=== PATIENT | female | born 1950 | race Caucasian/White ===

== ENCOUNTER 2017-05-28 07:56 | Day surgery (SDC) | payer OTHER ==
[~2017-05-28] VITALS: Ht 162.6 cm; Wt 133.1 kg
[2017-05-28] MEDS ORDERED: MONT10TA21 PO (08:28)
[2017-05-28] MEDS ORDERED: RANI150T5 PO (08:28)
[2017-05-28] MEDS ORDERED: GEMF600T60 PO (08:28)
[2017-05-28] MEDS ORDERED: ALBU18HF INHALATION (08:28)
[2017-05-28] MEDS ORDERED: LISI-313 PO (08:28)
[2017-05-28] MEDS ORDERED: ASPI-664 PO (08:28)
[2017-05-28] MEDS ORDERED: NAPR275T83 PO (08:28)
[2017-05-28] MEDS ORDERED: METF500T4 PO (08:28)
[2017-05-28] MEDS ORDERED: [UNRECOGNIZED DRUG - OTHER] PO (08:28)
[2017-05-28] MEDS ORDERED: PANT40TA4 PO (08:28)
[2017-05-28] MEDS ORDERED: LORA10TA3 PO (08:28)
[2017-05-28 08:40] VITALS: Ht 162.6 cm; Wt 133.1 kg
[2017-05-28] MEDS ORDERED: LIDOCAINE 2% (SDV) 5 ML INJ ONE (09:15)
[2017-05-28] MEDS ORDERED: PROPOFOL 60 ML ONE (09:15)
[2017-05-28 09:16] VITALS: BP 106/59; PULSE 60; RESP 22
[2017-05-28] MEDS ORDERED: ALBUTEROL HFA 8 GM INHALER INH SCH (09:30)
--- NOTE | 2017-05-28 10:10 | OPPN ---
Date/Time of Note Date/Time of Note DATE: 05/28/17 TIME: 10:03 Proc Note GI Procedure date: May 28, 2017 Pre-procedure Diagnosis Study of occult GI bleeding Post-procedure Diagnosis Erosive esophagitis #2 hiatal hernia #3 antral polyp #4 antral gastritis Operation Performed EGD Surgeon: ИВАН XIONG MD Anesthesiologist: DICK WALDEN DO Estimated blood loss: none Transfusion Required: no Specimens gastric and esophageal biopsy Grafts/Implants: none Complications: no Complications none Pt Condition post procedure: stable Indications h/o of occult GI bleeding Operative\Procedure Findings EGD Informed written consent is obtained patient was ostial in the left lateral side. His anesthesia was given by anesthesiologist.when the Become somnolent Olympus video upper endoscope was introduced into the oropharynx then into the esophagus Distal esophagus showed evidence of linear erosions of a moderate degree hiatal hernia was noted Stomach was examined which showed evidence of erythema in the antrum small polyp was noted in the antrum biopsies were done scope was advanced into the duodenum. duodenum appeared normal. at this time biopsy of the antral polyp was done.. bx of the antrum the lesser curvature in the fundus was done to rule out H. pylori infection Procedure Description scope was withdrawn and the procedure was terminated Recommend omeprazole 40 g a day in the morning before for breakfast wait for the pathology report cc ИВАН Reynolds MD May 28, 2017 10:10
--- NOTE | 2017-05-28 10:15 | OPPN ---
Date/Time of Note Date/Time of Note DATE: 05/28/17 TIME: 10:10 Proc Note GI Procedure date: May 28, 2017 Pre-procedure Diagnosis Screening colonoscopy Post-procedure Diagnosis Minimal external hemorrhoids Diverticula noted Operation Performed colonoscopy Surgeon: ИВАН XIONG MD Anesthesiologist: DICK WALDEN DO Estimated blood loss: none Transfusion Required: no Specimen: none Grafts/Implants: none Grafts/Implants none Tubes/Drains none Complications: no Complications none Pt Condition post procedure: stable Indications screening colonoscopy Operative\Procedure Findings colonoscopy The informed written consent is obtained patient was asked to lay on the left lateral side intravenous anesthesia was given by anesthesiologist when the patient became somnolent Olympus video colonoscope was introduced into the rectum scope was advanced all the way to the cecum. Diverticula noted in the colon no Polyps noted Scope with the stem was withdrawn. retroflexion was performed Mild internal hemorrhoids were noted when the scope was withdrawn minimal external hemorrhoids were noted Procedure at this time was terminated Comment repeat colonoscopy in 10 years cc ИВАН Reynolds MD May 28, 2017 10:15
[2017-05-28 10:28] VITALS: BP 111/71; PULSE 64; RESP 14
== END 2017-05-28 13:40 | disposition home or self-care (01) ==
LOC: GIL 07:56
PROVIDERS: ATTEND Internal Medicine Gastroenterology
DX: Z12.11 Encounter for screening for malignant neoplasm of colon (principal); K29.30 Chronic superficial gastritis without bleeding; K31.7 Polyp of stomach and duodenum; K64.4 Residual hemorrhoidal skin tags; K57.90 Diverticulosis of intestine, part unspecified, without perforation or abscess without bleeding; E66.01 Morbid (severe) obesity due to excess calories; Z68.43 Body mass index [BMI] 50.0-59.9, adult; I10 Essential (primary) hypertension; E11.9 Type 2 diabetes mellitus without complications
CPT/HCPCS: 82962; 88305; 88312